=== PATIENT | female | born 1975 | race Caucasian/White ===

== ENCOUNTER 2024-03-11 12:11 | Emergency (ER) | payer OTHER ==
[~2024-03-11] VITALS: Ht 160 cm; Wt 83.9 kg
[2024-03-11 12:36] VITALS: BP 108/72; PULSE 97; RESP 18; TEMP 98.9; O2SAT 98
[2024-03-11] MEDS ORDERED: AZIT250T4 PO (13:29)
[2024-03-11] MEDS ORDERED: AMOX-1230 PO (13:29)
[2024-03-11] MEDS ORDERED: PROM118S5 PO (13:29)
[2024-03-11] MEDS ORDERED: ALBU0.0912 IH (13:29)
[2024-03-11] MEDS: IBUPROFEN 600 MG TAB PO SCH (13:45)
[2024-03-11 13:46] VITALS: BP 133/60; PULSE 80; RESP 18; TEMP 98.3; O2SAT 99
== END 2024-03-11 13:46 | disposition home or self-care (01) ==
LOC: MED 12:11
DX: J18.9 Pneumonia, unspecified organism (principal); Z79.899 Other long term (current) drug therapy
CPT/HCPCS: 71046; 99283